=== PATIENT | female | born 1955 ===

== ENCOUNTER 2023-01-03 07:52 | Day surgery (SDC) | payer OTHER ==
[2023-01-03] MEDS ORDERED: SODIUM CHLORIDE 0.9% 10ML INJ IV ONE (08:00)
[2023-01-03] MEDS ORDERED: COSYNTROPIN 0.25 MG VIAL IV ONE (08:00)
[2023-01-03 09:24] VITALS: BP 101/56; TEMP 97.4; O2SAT 98; BMI 19.3
== END 2023-01-03 10:30 | disposition home or self-care (01) ==
LOC: DS 07:52
PROVIDERS: ATTEND Internal Medicine
DX: E87.1 Hypo-osmolality and hyponatremia (principal)
CPT/HCPCS: 36415; 82533 ×4; 82024; 96372; A4216; J0834